=== PATIENT | female | born 1965 | race Caucasian/White ===

== ENCOUNTER 2021-05-05 16:59 | Observation (INO) | payer OTHER ==
[~2021-05-05] VITALS: Ht 165.1 cm; Wt 102.1 kg
[~2021-05-05 16:59] MED LIST: ASPIRIN EC81 MG PO; CATAPRES 0.1MG0.1 MG PO; CLOPIDOGREL75 MG PO; HYDROCHLOROTHIA25 MG PO; LISINOPRIL20 MG PO; LISINOPRIL40 MG PO; LORAZEPAM0.5 MG PO; METOPROLOL SUCC50 MG PO; MIRALAX17 GM PO; NITROGLYCERIN0.4 MG SL; PROTONIX40 MG PO
[2021-05-05] MEDS ORDERED: LISINOPRIL20 MG PO (18:45)
[2021-05-05] MEDS ORDERED: ATIVAN0.5 MG PO (18:46)
[2021-05-05 19:35] LABS: HEMOGLOBIN 11.4 gm/dl (12.3-15.3); RED BLOOD COUNT 3.65 M/UL (4.00-5.10); WHITE BLOOD COUNT 7.9 K/UL (4.5-11.0)
[2021-05-05 20:18] LABS: BUN/CREATININE RATIO 14 (0-10)
[2021-05-06 02:35] LABS: RED BLOOD COUNT 3.5 M/UL (4.00-5.10)
[2021-05-06 03:24] LABS: BUN/CREATININE RATIO 15 (0-10)
[2021-05-06 11:52] LABS: BORDETELLA PARAPERTUSSIS Not Detected (Not Detectd); BORDETELLA PERTUSSIS Not Detected (Not Detectd); CHLAMYDIA PNEUMONIAE Not Detected (Not Detectd); CORONAVIRUS HKU1 Not Detected (Not Detectd); CORONAVIRUS NL63 Not Detected (Not Detectd); CORONAVIRUS OC43 Not Detected (Not Detectd); CORONOAVIRUS 229E Not Detected (Not Detectd); HUMAN METAPNEUMOVIRUS Not Detected (Not Detectd); HUMAN RHINOVIRUS/ENTEROVIRUS Not Detected (Not Detectd); INFLUENZA A Not Detected (Not Detectd); INFLUENZA B Not Detected (Not Detectd); MYCOPLASMA PNEUMONIAE Not Detected (Not Detectd); PARAINFLUENZA VIRUS 1 Not Detected (Not Detectd); PARAINFLUENZA VIRUS 2 Not Detected (Not Detectd); PARAINFLUENZA VIRUS 3 Not Detected (Not Detectd); PARAINFLUENZA VIRUS 4 Not Detected (Not Detectd); RESPIRATORY SYNCYTIAL VIRUS Not Detected (Not Detectd)
[2021-05-06 13:11] LABS: SARS-CoV-2 NOT DETECTED (Not Detectd)
[2021-05-06] MEDS ORDERED: FLONASE 0.05% N16 GM (13:48)
[2021-05-06] MEDS ORDERED: CETIRIZINE HCL10 MG PO (13:48)
[2021-05-06] MEDS ORDERED: CYCLOBENZAPRINE10 MG PO (13:49)
[2021-05-06] MEDS ORDERED: MECLIZINE HCL25 MG PO (13:49)
[2021-05-06] MEDS ORDERED: DOCUSATE SODIU100 MG PO (13:51)
[2021-05-06] MEDS ORDERED: HYDROCHLOROTH12.5 M1 PO (13:53)
[2021-05-06] MEDS ORDERED: ZOFRAN ODT 4 MG4 MG PO (13:55)
[2021-05-06] MEDS ORDERED: VITAMIN D21250 MCG PO (20:06)
[2021-05-06] MEDS ORDERED: ESTRADIOL1 EAC7 TD (20:07)
[2021-05-06] MEDS ORDERED: HYDROCODON-ACE1 EAC6 PO (20:08)
[2021-05-06] MEDS ORDERED: FENTANYL1 EACH TD (20:09)
[2021-05-06] MEDS ORDERED: SENNA LAXATIVE8.6 MG PO (20:10)
[2021-05-06] MEDS ORDERED: ATORVASTATIN CA20 MG PO (20:10)
[2021-05-06] MEDS ORDERED: OMEPRAZOLE40 MG PO (20:10)
[2021-05-07 08:43] LABS: HEMOGLOBIN 10.3 gm/dl (12.3-15.3); RED BLOOD COUNT 3.35 M/UL (4.00-5.10)
[2021-05-07] MEDS ORDERED: ISOSORBIDE MONO30 MG PO (15:22)
[2021-05-07] MEDS ORDERED: LISINOPRIL20 MG PO (15:22)
[2021-05-07] MEDS ORDERED: LEVOFLOXACIN250 MG PO (15:22)
== END 2021-05-07 17:46 | disposition home or self-care (01) ==
LOC: MED SURG 4 18:20
PROVIDERS: ADMIT Internal Medicine
DX: R07.89 Other chest pain (principal); I25.10 Atherosclerotic heart disease of native coronary artery without angina pectoris; I10 Essential (primary) hypertension; E78.5 Hyperlipidemia, unspecified; M79.7 Fibromyalgia; Z95.5 Presence of coronary angioplasty implant and graft; M81.0 Age-related osteoporosis without current pathological fracture; F41.9 Anxiety disorder, unspecified; Z87.891 Personal history of nicotine dependence; Z79.82 Long term (current) use of aspirin; G89.4 Chronic pain syndrome; M54.2 Cervicalgia; E66.9 Obesity, unspecified; D64.9 Anemia, unspecified; Z88.8 Allergy status to other drugs, medicaments and biological substances; Z20.822 Contact with and (suspected) exposure to COVID-19; J18.9 Pneumonia, unspecified organism
CPT/HCPCS: 36415; 71045; 78452; 80053; 82550; 82553; 84484; 85025; 85027; 85379; 87633; 93005; 93017; 94640; 94664; 94760; A9502; G0378; G0379; J2785; J7030

== ENCOUNTER 2021-10-16 15:27 | Observation (INO) | payer OTHER ==
[~2021-10-16] VITALS: Ht 165.1 cm; Wt 99.8 kg
[~2021-10-16 15:27] MED LIST changes: +ATIVAN0.5 MG PO; +ATORVASTATIN CA20 MG PO; +CETIRIZINE HCL10 MG PO; +CYCLOBENZAPRINE10 MG PO; +DOCUSATE SODIU100 MG PO; +ESTRADIOL1 EAC7 TD; +FENTANYL1 EACH TD; +FLONASE 0.05% N16 GM; +HYDROCHLOROTH12.5 M1 PO; +HYDROCODON-ACE1 EAC6 PO; +ISOSORBIDE MONO30 MG PO; +LEVOFLOXACIN250 MG PO; +MECLIZINE HCL25 MG PO; +OMEPRAZOLE40 MG PO; +SENNA LAXATIVE8.6 MG PO; +VITAMIN D21250 MCG PO; +ZOFRAN ODT 4 MG4 MG PO
[2021-10-16 16:25] LABS: HEMOGLOBIN 14.2 gm/dl (12.3-15.3); RED BLOOD COUNT 4.68 M/UL (4.00-5.10); WHITE BLOOD COUNT 13.1 K/UL (4.5-11.0)
[2021-10-16 16:51] LABS: BUN/CREATININE RATIO 13 (0-10)
[2021-10-17] MEDS ORDERED: LISINOPRIL20 MG PO (10:23)
[2021-10-17] MEDS ORDERED: NITROGLYCERIN0.4 MG SL (10:27)
[2021-10-17] MEDS ORDERED: FENTANYL1 EAC7 TD (10:28)
[2021-10-17] MEDS ORDERED: METHOCARBAMOL500 MG PO (10:29)
[2021-10-17] MEDS ORDERED: HYDROCHLOROTH12.5 M1 PO (10:29)
[2021-10-17] MEDS ORDERED: NAPROXEN500 MG PO (10:30)
[2021-10-17 16:58] LABS: HEMOGLOBIN 13.4 gm/dl (12.3-15.3); RED BLOOD COUNT 4.38 M/UL (4.00-5.10)
[2021-10-17 17:16] LABS: WHITE BLOOD COUNT 7.7 K/UL (4.5-11.0)
== END 2021-10-18 15:33 | disposition home or self-care (01) ==
LOC: ER1 15:27 → CDU 21:30 → M/S 21:30
PROVIDERS: ADMIT Internal Medicine
DX: R07.89 Other chest pain (principal); R25.1 Tremor, unspecified; R53.1 Weakness; G62.9 Polyneuropathy, unspecified; I10 Essential (primary) hypertension; E78.5 Hyperlipidemia, unspecified; I25.10 Atherosclerotic heart disease of native coronary artery without angina pectoris; M79.7 Fibromyalgia; G89.4 Chronic pain syndrome; M47.816 Spondylosis without myelopathy or radiculopathy, lumbar region; F17.210 Nicotine dependence, cigarettes, uncomplicated; M54.2 Cervicalgia; E55.9 Vitamin D deficiency, unspecified; K21.9 Gastro-esophageal reflux disease without esophagitis; E66.9 Obesity, unspecified; Z68.36 Body mass index [BMI] 36.0-36.9, adult; Z98.1 Arthrodesis status; Z98.890 Other specified postprocedural states; Z90.49 Acquired absence of other specified parts of digestive tract; Z95.5 Presence of coronary angioplasty implant and graft; Z79.82 Long term (current) use of aspirin; Z79.890 Hormone replacement therapy; Z79.899 Other long term (current) drug therapy; Z79.891 Long term (current) use of opiate analgesic
CPT/HCPCS: 36415; 70450; 70553; 71046; 80053; 82550; 82553; 84484; 85025; 85027; 85379; 93005; 99285; A9577; G0378; J1650

== ENCOUNTER 2021-12-17 14:54 | Emergency (ER) | payer OTHER ==
[~2021-12-17 14:54] MED LIST changes: +FENTANYL1 EAC7 TD; +METHOCARBAMOL500 MG PO; +NAPROXEN500 MG PO
[2021-12-17 15:33] LABS: HEMOGLOBIN 14.1 gm/dl (12.3-15.3); RED BLOOD COUNT 4.59 M/UL (4.00-5.10); WHITE BLOOD COUNT 7.4 K/UL (4.5-11.0)
[2021-12-17 15:52] LABS: BUN/CREATININE RATIO 10 (0-10)
== END 2021-12-17 21:00 | disposition home or self-care (01) ==
LOC: ER1 14:54
PROVIDERS: Emergency Medicine
DX: R07.89 Other chest pain (principal); E78.5 Hyperlipidemia, unspecified; I10 Essential (primary) hypertension; F17.210 Nicotine dependence, cigarettes, uncomplicated
CPT/HCPCS: 71045; 80053; 82550; 82553; 84484; 85025; 93005; 96374; 99285; J1885

== ENCOUNTER → 2022-02-05 | Outpatient (CLI) | payer OTHER ==
[2022-02-06 07:16] LABS: RHEUMATOID ARTHRITIS FACTOR <10.0 IU/mL (<14.0); RPR Non Reactive (Non Reactive)
[2022-02-06 12:14] LABS: ANTI-DSDNA ANTIBODIES <1 IU/mL (0-9)
[2022-02-06 14:11] LABS: LYME TOTAL ANTIBODY CIA Negative (Negative)
[2022-02-07 08:13] LABS: FOLATE (FOLIC ACID), SERUM 10.1 ng/mL (>3.0)
== END ==
LOC: LAB 13:10
PROVIDERS: Psychiatry & Neurology Neurology
DX: R53.82 Chronic fatigue, unspecified (principal); G89.4 Chronic pain syndrome; F17.200 Nicotine dependence, unspecified, uncomplicated; M48.02 Spinal stenosis, cervical region; M48.061 Spinal stenosis, lumbar region without neurogenic claudication; G95.9 Disease of spinal cord, unspecified; R26.81 Unsteadiness on feet
CPT/HCPCS: 36415; 82607; 82746; 84443; 85652; 86038; 86141; 86225; 86255; 86431; 86592; 86618